=== PATIENT | female | born 1970 | race Caucasian/White ===

== ENCOUNTER → 2017-04-24 | Outpatient (CLI) | payer OTHER ==
[~2017-04-24] MED LIST: ALB6.7R INH; CETI-176 PO; CITA-155 PO; CITA-156 PO; CITA-157 PO; CYAN100088 PO; CYCL10TA29 PO; ESOM20CA31 PO; ESOM40CA42 PO; FERR324T13 PO; FLU45SYR25 IM ONLY; FLUT1DIS28 IH; FOLI-68 PO; HYDR-4309 PO; IBUP100T54 PO; IBUP200C71 PO; LACT1CAP6 PO; MELO-207 PO; MONT10TA PO; TRAM-420 PO; TRIA15OI20 TP
[2017-04-24 08:19] LABS: PLATELET COUNT, AUTOMATED 330 K/uL (150-450)
--- NOTE | 2017-04-24 10:24 | RADIOLOGY IMAGING REPORT ---
FACILITY: [facility] PATIENT NAME: Sarah Arroyo : 1970 MR: [id number] V: [id number] EXAM DATE: ORDERING PHYSICIAN: YOSELYN SCOTT TECHNOLOGIST: Location: [facility] - [place] Patient: Sarah Arroyo : 1970 Visit/Account:[id number] Date of Sevice: 04/24/2017 Exam type: CHEST PA AND LAT History: Cough Comparison: None. Findings: The lungs are free of acute effusions, infiltrates or edema. Cardiac silhouette is normal in size. The trachea is in midline. There are surgical clips the upper abdomen IMPRESSION: 1. No acute cardiopulmonary process is seen Report Dictated By: Kathy Brown MD at 04/24/2017 10:18 AM Report E-Signed By: Kathy Brown MD at 04/24/2017 10:19 AM WSN:[email or web address]
== END ==
LOC: LAB 08:07
PROVIDERS: ATTEND Nurse Practitioner Primary Care
DX: R05 Cough (principal)
CPT/HCPCS: 36415; 71046; 82040; 82247; 82310; 82374; 82435; 82565; 82947; 84075; 84132; 84155; 84295; 84450; 84460; 84520; 85025

== ENCOUNTER 2017-06-26 07:58 | Outpatient (RCR) | payer OTHER ==
[2017-05-09 08:07] VITALS: BP 138/92
[2017-05-09 08:28] LABS: PLATELET COUNT, AUTOMATED 333 K/uL (150-450)
[2017-05-25 12:33] VITALS: BP 133/90
--- NOTE | 2017-05-25 20:17 | ONCOLOGY FOLLOW UP NOTE ---
EVENT DATE: May 25, 2017 DIAGNOSES 1. Chronic, recurrent iron deficiency anemia without obvious cause. 2. History of asthma. 3. Gastroesophageal reflux disease on Nexium. 4. Anxiety on Celexa. CHIEF COMPLAINT The patient is here today for followup of her iron deficiency anemia. HEMATOLOGY HISTORY The patient is a 46-year-old female who moved from [place] to [place] and patient has a history of chronic iron deficiency anemia without any obvious blood loss source. As per patient, she did not have a GI workup in the past and she does not have heavy periods. She saw a payroll specialist in [place] between 2011 and 2013. She had blood work done February 2016 which showed hemoglobin of 8.4, hematocrit 29.8, serum iron 25 and ferritin 4 with iron saturation 6.3%. She was maintained in ferrous sulfate, but she was taking only one pill a day because she cannot tolerate the iron supplement orally. She is complaining of weakness and fatigue, daily headache. Repeat CBC on June 23, 2016 showed white count 10.1, hemoglobin 10.1, hematocrit 33.9%, platelets 429,000. Serum iron was 20. TIBC was 390. Iron saturation 5.1%. Ferritin was low normal at 6. Soluble transferrin receptor assay is high at 12.6. Red cell folate is 1342, which is normal. Serum folate was more than 22.3, which is normal. Vitamin B12 was 378. Methylmalonic acid is less than 0.10, which is normal. HISTORY OF PRESENT ILLNESS Patient is here today for followup of her recurrent iron deficiency anemia. She is complaining of a low grade fever lately, but she had a cold last week. Her cough is improved with Advair. 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 Other than that she is doing fine. PAST MEDICAL HISTORY 1. Chronic iron deficiency anemia. 2. Asthma. 3. GERD. 4. Anxiety. 5. Arthralgia with possible fibromyalgia. PAST SURGICAL HISTORY 1. Cholecystectomy in 2006. 2. section x2. 3. Left knee arthroscopic surgery. 4. Breast reduction surgery. SOCIAL HISTORY The patient is and has two children. She works in [employer]. Denies any abuse of tobacco, alcohol or drugs. FAMILY HISTORY Negative for cancer or blood diseases. CURRENT MEDICATIONS 1. Vitamin B12 at 1000 mcg orally daily. 2. Ferrous gluconate 324 mg once daily. 3. Celexa 40 mg once daily. 4. Nexium 40 mg once daily. 5. Singulair 10 mg once daily. 6. Zyrtec 10 mg once daily. 7. Ibuprofen 200 mg capsule, 2-4 capsules every eight hours p.r.n. and patient is using it on a daily basis. ALLERGIES PENICILLIN, WHICH CAUSED VOMITING A CHILD. REVIEW OF SYSTEMS CONSTITUTIONAL: No appetite or weight change. The patient has low grade fever for the last week after a cold. No chills or sweating. No recent infection. HEENT: Ears: No tinnitus or hearing problem. Nose: No nasal discharge or epistaxis. Throat: No sore throat or mouth ulcers. Eyes: No diplopia or visual changes. RESPIRATORY: She has cough, which improved with Advair inhaler.. MUSCULOSKELETAL: She has pain in the shoulders, both hips and hands. NEUROLOGICAL: She has tingling and numbness in the hands which is positional. She also has headache. HEMATOLOGICAL: She is weak, tired and fatigued. CARDIOVASCULAR: No chest pain, orthopnea, or paroxysmal nocturnal dyspnea (PND) . No edema. No palpitations. GASTROINTESTINAL: No nausea or vomiting. No diarrhea or constipation. No change in bowel movements. No heartburn or swallowing difficulties. No abdominal pain. No jaundice. No hematemesis, melena or rectal bleeding. GENITOURINARY: No hematuria or dysuria. SKIN: No skin rash or lump. PSYCHIATRIC: No anxiety or depression. PHYSICAL EXAMINATION GENERAL: Looks stable. Well-developed, well-nourished, and in no acute distress. VITAL SIGNS: Blood pressure 133/90, pulse 89 per minute, respirations 16 per minute, temperature 99, pulse ox 90% on room air. HEENT: Head: Atraumatic. No sinus tenderness to palpation. Eyes: No icterus or conjunctivitis. Mouth and throat: No oral thrush or mucositis. NECK: Supple. No cervical or supraclavicular lymphadenopathy. LUNGS: Clear to auscultation and percussion bilaterally. HEART: Regular rate and rhythm. No gallops, murmurs, clicks or rubs. ABDOMEN: Soft and lax. No tenderness. No hepatosplenomegaly. No masses. EXTREMITIES: No cyanosis, clubbing or edema. LYMPHATICS: No peripheral lymphadenopathy. NEUROLOGICAL: Conscious, alert and oriented times three. No focal motor or sensory deficits. PSYCHIATRIC: Mood and affect appear normal. SKIN: No skin rash, bruise or purpuric eruption. DIAGNOSTIC DATA CBC showed a white count of 11.1, hemoglobin 12.6, hematocrit 38.5, platelets 333,000. Chem panel normal. Creatinine 0.5. Serum ferritin is low at 8. ASSESSMENT 1. Chronic, recurrent iron deficiency anemia without obvious cause of her anemia. Patient has been maintained on ferrous sulfate 325 mg once daily, but patient could not tolerate the iron pill. She has been seen by Dr. Carr, and GI workup was done recently, I believe in January 2017, which did not show any bleeding source. She received Injectafer in the past with improvement of her ferritin, which dropped from 147 to 35 to 14 and currently 8. I am planning to treat her again with Injectafer 750 mg weekly for two doses. I will see her again in three months with CBC, iron studies with ferritin. 2. History of asthma. 3. Gastroesophageal reflux disease, on Nexium. 4. Anxiety, on Celexa. PLAN 1. Infectafer 750 mg IV infusion weekly for two weeks. 2. Patient to return in three months with CBC, iron studies with ferritin. 3. Patient is to contact us for any new concern or complaints. [facility]
[2017-06-19 08:06] VITALS: BP 144/83
[~2017-06-26 07:58] MED LIST changes: +DEXTROSE 5%(*) 100 ML BAG 100 ML IVPB PRN; +FERRIC CARBOXY 750 MG SDV 750 MG in NS(*) 0.9% 250 ML BAG 250 ML IVP ONE; +LIDOCAINE/SOD BICARB 8.4% SYR ID PRN; +NS(*) 0.9% 100 ML BAG 100 ML IVPB PRN
[2017-06-26] MEDS ORDERED: FERRIC CARBOXY 750 MG SDV 750 MG in NS(*) 0.9% 250 ML BAG 250 ML IVP ONE (08:45)
[2017-06-26 09:02] VITALS: BP 128/85
[2017-07-02] MEDS ORDERED: PRED20TA6 PO (21:23)
[2017-07-02] MEDS ORDERED: ALBU2.5V36 INH (21:23)
== END 2017-08-03 ==
LOC: SPU 07:58
PROVIDERS: ATTEND Internal Medicine Hematology
DX: D50.9 Iron deficiency anemia, unspecified (principal); J45.909 Unspecified asthma, uncomplicated; K21.9 Gastro-esophageal reflux disease without esophagitis; F41.9 Anxiety disorder, unspecified; R53.1 Weakness; R53.83 Other fatigue; R51 Headache; R20.0 Anesthesia of skin; M25.512 Pain in left shoulder; M25.511 Pain in right shoulder; M25.552 Pain in left hip; M25.551 Pain in right hip; M79.642 Pain in left hand; M79.641 Pain in right hand
CPT/HCPCS: 36415; 82728; 83550; 85025; 96365; 99212; J1439; J7050; 82040; 82247; 82310; 82374; 82435; 82565; 82947; 84075; 84132; 84155; 84295; 84450; 84460; 84520

== ENCOUNTER 2017-07-02 19:24 | Emergency (ER) | payer OTHER ==
[~2017-07-02 19:24] MED LIST changes: -DEXTROSE 5%(*) 100 ML BAG 100 ML IVPB PRN; -FERRIC CARBOXY 750 MG SDV 750 MG in NS(*) 0.9% 250 ML BAG 250 ML IVP ONE; -LIDOCAINE/SOD BICARB 8.4% SYR ID PRN; -NS(*) 0.9% 100 ML BAG 100 ML IVPB PRN
[2017-07-02] MEDS ORDERED: methylPREDNIS SUCC 125 MG/2ML IVP ONE (19:45)
[2017-07-02] MEDS ORDERED: ALBUTEROL/IPRATROPIUM 3 ML NEB NEB ONE (19:45)
--- NOTE | 2017-07-02 19:54 | ER Report ---
History and Physical Time Seen By MD: 19:33 Hx. of Stated Complaint: SOB. BODY ACHES, HEADACHE, FEVER, COUGH HPI/ROS CHIEF COMPLAINT: cough, short of breath HISTORY OF PRESENT ILLNESS: This is a 46 year old female. She has been sick for about 5 days now. She has cough and wheezing. She has asthma, normally well controlled. Muscle aches and headache. Fever. Tonight, was worried about the increasing shortness of breath. No nausea or vomiting at this time. Allergies: Coded Allergies: Penicillins (Verified Allergy, Mild, GI, 07/02/17) acetaminophen (Verified Adverse Reaction, Unknown, HALLUCINATIONS, 07/02/17) oxycodone (Verified Adverse Reaction, Unknown, HALLUCINATIONS, 07/02/17) Home Meds Active Scripts Albuterol Sulfate 0.083% (ALBUTEROL SULFATE 0.083%) 2.5 Mg/3 Ml Vial.neb, 2.5 MG INH Q4H Y for WHEEZING, #1 BOX 0 Refills Prov:AP CROW MD 07/02/17 Prednisone (PREDNISONE) 20 Mg Tablet, 40 MG PO QDAY for 4 Days, #8 TAB 0 Refills Prov:AP CROW MD 07/02/17 Fluticasone/Salmeterol (ADVAIR 250-50 DISKUS) 1 Each Disk.w.dev, 1 EACH IH BID, #4 DISK 0 Refills Prov:YOSELYN SCOTT DNP, [employer] REP-BC 05/11/17 Citalopram Hydrobromide (CELEXA) 40 Mg Tablet, 40 MG PO QDAY, #10 TAB Prov:CHYNA NGO MD 03/02/17 Montelukast Sodium (SINGULAIR) 10 Mg Tablet, 1 TAB PO QDAY, #90 TAB 4 Refills Prov:CHYNA NGO MD 06/28/16 Cetirizine Hcl (ZYRTEC) 10 Mg Tablet, 10 MG PO QDAY, #90 TAB 4 Refills Prov:CHYNA NGO MD 06/28/16 Esomeprazole Magnesium (NEXIUM) 40 Mg Capsule.dr, 1 CAP PO QDAY, #90 CAP 1 Refill Prov:CHYNA NGO MD 03/24/16 Reported Medications Lactobacillus Combination No.4 (PROBIOTIC) 1 Each Capsule, 1 EACH PO, CAPSULE 04/21/17 Albuterol Sulfate (PROVENTIL HFA) 6.7 Gm Inh, 2 PUFF INH Q4-6H Y for ALLERGY SYMPTOMS, INH 01/24/17 Reviewed Nurses Notes: Yes Smoking Status: Former Smoker Hx Substance Use Disorder: No Hx Alcohol Use: Yes Constitutional Vital Sign - Last 24 Hours 07/02/17 07/02/17 07/02/17 07/02/17 19:29 19:40 19:50 19:52 Temp 98.1 Pulse 95 90 88 Resp 22 B/P (MAP) 129/78 Pulse Ox 94 94 100 94 O2 Delivery Room Air Room Air 07/02/17 07/02/17 07/02/17 07/02/17 19:53 19:54 20:00 20:10 Pulse 92 97 94 91 Resp 16 16 B/P (MAP) 118/74 (89) Pulse Ox 95 86 07/02/17 07/02/17 07/02/17 07/02/17 20:20 20:30 20:40 21:21 Pulse 88 85 ??? 88 Resp 16 B/P (MAP) 120/80 (93) 116/69 (85) Pulse Ox 93 94 91 92 O2 Delivery Room Air Physical Exam General Appearance: The patient is alert. No acute distress. Eyes: Pupils are equal, round. No pallor, injection or icterus. ENT: Mucous membranes are moist. Normal oral mucosa. Posterior oropharynx has some erythema. Normal nasal mucosa. Normal tympanic membranes and canals. Neck: Supple and non tender. Respiratory: Lungs with some expiratory wheezing, but no rales or rhonchi. There are no retractions or accessory muscle use. Cardiovascular: Regular rate and rhythm. No murmurs, gallops or rubs. Normal capillary refill. Gastrointestinal: Abdomen is soft and non tender. Nondistended. Normal active bowel sounds. Neurological: Alert and oriented x3. No focal neurologic deficits Skin: Warm and dry. DIFFERENTIAL DIAGNOSIS: After history and physical exam, differential diagnosis was considered for shortness of breath including but not limited to pulmonary infectious process, asthma exacerbation, influenza. Medical Decision Making Data Points Result Diagram: 07/02/17194607/02/171946 Laboratory Hematology Test 07/02/17 19:47 Red Blood Count 5.16 M/uL (4.17-5.56) Mean Corpuscular Volume 82.9 fL (80.0-96.0) Mean Corpuscular Hemoglobin 27.7 pg (26.0-33.0) Mean Corpuscular Hemoglobin Concent 33.4 g/dL (32.0-36.0) Red Cell Distribution Width 19.3 % (11.5-14.5) Mean Platelet Volume 7.7 fL (7.2-11.1) Neutrophils (%) (Auto) 67.2 % (39.4-72.5) Lymphocytes (%) (Auto) 16.8 % (17.6-49.6) Monocytes (%) (Auto) 9.7 % (4.1-12.4) Eosinophils (%) (Auto) 5.7 % (0.4-6.7) Basophils (%) (Auto) 0.6 % (0.3-1.4) Nucleated RBC Relative Count (auto) 0.1 /100WBC Neutrophils # (Auto) 5.2 K/uL (2.0-7.4) Lymphocytes # (Auto) 1.3 K/uL (1.3-3.6) Monocytes # (Auto) 0.8 K/uL (0.3-1.0) Eosinophils # (Auto) 0.4 K/uL (0.0-0.5) Basophils # (Auto) 0.0 K/uL (0.0-0.1) Nucleated RBC Absolute Count (auto) 0.00 K/uL Sodium Level 139 mmol/L (137-145) Potassium Level 3.2 mmol/L (3.5-5.0) Chloride Level 100 mmol/L (98-107) Carbon Dioxide Level 25 mmol/L (22-31) Blood Urea Nitrogen 12 mg/dl (7-18) Creatinine 0.60 mg/dl (0.52-1.04) Glomerular Filtration Rate Calc > 60.0 Random Glucose 123 mg/dl (75-110) Calcium Level 8.6 mg/dl (8.4-10.2) Total Bilirubin 0.2 mg/dl (0.2-1.3) Aspartate Amino Transf (AST/SGOT) 19 U/L (0-35) Alanine Aminotransferase (ALT/SGPT) 21 U/L (0-56) Alkaline Phosphatase 76 U/L (0-126) Total Protein 7.2 gm/dl (6.3-8.2) Albumin 3.9 g/dl (3.5-5.0) Influenza Virus Type A (PCR) Negative (NEGATIVE) Influenza Virus Type B (PCR) Negative (NEGATIVE) Chemistry Test 07/02/17 19:47 White Blood Count 7.8 k/uL (4.5-11.0) Red Blood Count 5.16 M/uL (4.17-5.56) Hemoglobin 14.3 g/dL (12.0-16.0) Hematocrit 42.8 % (34.0-47.0) Mean Corpuscular Volume 82.9 fL (80.0-96.0) Mean Corpuscular Hemoglobin 27.7 pg (26.0-33.0) Mean Corpuscular Hemoglobin Concent 33.4 g/dL (32.0-36.0) Red Cell Distribution Width 19.3 % (11.5-14.5) Platelet Count 221 K/uL (150-450) Mean Platelet Volume 7.7 fL (7.2-11.1) Neutrophils (%) (Auto) 67.2 % (39.4-72.5) Lymphocytes (%) (Auto) 16.8 % (17.6-49.6) Monocytes (%) (Auto) 9.7 % (4.1-12.4) Eosinophils (%) (Auto) 5.7 % (0.4-6.7) Basophils (%) (Auto) 0.6 % (0.3-1.4) Nucleated RBC Relative Count (auto) 0.1 /100WBC Neutrophils # (Auto) 5.2 K/uL (2.0-7.4) Lymphocytes # (Auto) 1.3 K/uL (1.3-3.6) Monocytes # (Auto) 0.8 K/uL (0.3-1.0) Eosinophils # (Auto) 0.4 K/uL (0.0-0.5) Basophils # (Auto) 0.0 K/uL (0.0-0.1) Nucleated RBC Absolute Count (auto) 0.00 K/uL Glomerular Filtration Rate Calc > 60.0 Calcium Level 8.6 mg/dl (8.4-10.2) Total Bilirubin 0.2 mg/dl (0.2-1.3) Aspartate Amino Transf (AST/SGOT) 19 U/L (0-35) Alanine Aminotransferase (ALT/SGPT) 21 U/L (0-56) Alkaline Phosphatase 76 U/L (0-126) Total Protein 7.2 gm/dl (6.3-8.2) Albumin 3.9 g/dl (3.5-5.0) Influenza Virus Type A (PCR) Negative (NEGATIVE) Influenza Virus Type B (PCR) Negative (NEGATIVE) EKG/Imaging Imaging CHEST PA AND LAT HISTORY: Cough. Shortness of breath. Asthma. COMPARISON: 04/24/2017. TECHNIQUE: PA and lateral views of the chest. FINDINGS: Pulmonary: Lungs are clear. There is no pneumothorax or pleural effusion. Cardiomediastinal: Cardiac and mediastinal silhouettes are within normal limits. Bones/soft tissues: No acute osseous abnormality. The visible abdomen is normal. IMPRESSION: 1. No acute cardiopulmonary process. Report Dictated By: Meche Frey at 07/02/2017 9:07 PM ED Course/Re-evaluation Clinical Indication for ER IV: IV Access ED Course The patient received a dose of Solu-Medrol 125mg IV and a DuoNeb breathing treatment. Her wheezing has increased after the treatment. Still no rales. She feels better. Reviewed imaging and labs a little later, which are unremarkable. She will return home with viral upper respiratory infection and asthma exacerbation. She will use inhalers tonight. Started on Prednisone. Offered to get her nebulizer tonight, but she will work on this tomorrow morning. Decision to Disposition Date: Jul 02, 2017 Decision to Disposition Time: 21:19 Depart Departure Latest Vital Signs Vital Signs Date Time Temp Pulse Resp B/P (MAP) Pulse Ox O2 Delivery O2 Flow Rate FiO2 07/02/17 21:21 88 16 116/69 (85) 92 Room Air 07/02/17 19:29 98.1 Impression: Primary Impression: Upper respiratory infection Additional Impression: Asthma with exacerbation Condition: Improved Disposition: HOME OR SELF-CARE Referrals: CHYNA NGO MD (PCP) New Scripts Albuterol Sulfate 0.083% (ALBUTEROL SULFATE 0.083%) 2.5 Mg/3 Ml Vial.neb 2.5 MG INH Q4H Y for WHEEZING, #1 BOX 0 Refills Prov: AP CROW MD 07/02/17 Prednisone (PREDNISONE) 20 Mg Tablet 40 MG PO QDAY for 4 Days, #8 TAB 0 Refills Prov: AP CROW MD 07/02/17 Patient Instructions: Asthma (ED), Upper Respiratory Infection (ED) Additional Instructions: Take Prednisone 20mg tablets, take 2 tablets once a day in the morning for 4 more days. Albuterol by nebulizer or by inhaler every 4 hours as needed. Rest and increase fluids. Would recommend off work for 1-2 more days; possibly return to work on Monday. Ibuprofen as needed for pain or for fever. Problem Qualifiers Primary Impression: Upper respiratory infection URI type: unspecified URI Qualified Codes: J06.9 - Acute upper respiratory infection, unspecified Additional Impression: Asthma with exacerbation Asthma severity: moderate Asthma persistence: persistent Qualified Codes: J45.41 - Moderate persistent asthma with (acute) exacerbation AP CROW MD Jul 02, 2017 19:54
[2017-07-02 20:03] LABS: PLATELET COUNT, AUTOMATED 221 K/uL (150-450)
--- NOTE | 2017-07-02 21:12 | RADIOLOGY IMAGING REPORT ---
FACILITY: [facility] - [place] PATIENT NAME: Sarah Arroyo : 1970 MR: [id number] V: [id number] EXAM DATE: ORDERING PHYSICIAN: AP CROW TECHNOLOGIST: [place] [facility] [place] Sarah Arroyo : 1970 Visit/Account:[id number] Date of Sevice: 07/02/2017 CHEST PA AND LAT HISTORY: Cough. Shortness of breath. Asthma. COMPARISON: 04/24/2017. TECHNIQUE: PA and lateral views of the chest. FINDINGS: Pulmonary: Lungs are clear. There is no pneumothorax or pleural effusion. Cardiomediastinal: Cardiac and mediastinal silhouettes are within normal limits. Bones/soft tissues: No acute osseous abnormality. The visible abdomen is normal. IMPRESSION: 1. No acute cardiopulmonary process. Report Dictated By: Meche Frey at 07/02/2017 9:07 PM Report E-Signed By: Meche Frey at 07/02/2017 9:08 PM WSN:[id number]
[2017-07-02] MEDS ORDERED: predniSONE 20 MG TAB PO ONE (21:20)
[2017-07-02 21:21] VITALS: BP 116/69
[2017-07-02] MEDS ORDERED: PRED20TA6 PO (21:23)
[2017-07-02] MEDS ORDERED: ALBU2.5V36 INH (21:23)
== END 2017-07-02 21:39 | disposition home or self-care (01) ==
LOC: ER 19:37
DX: J06.9 Acute upper respiratory infection, unspecified (principal); J45.41 Moderate persistent asthma with (acute) exacerbation
CPT/HCPCS: 71046; 85025; 87502; 94640; 96374; 99283; J2930; J7512; J7620; 82040; 82247; 82310; 82374; 82435; 82565; 82947; 84075; 84132; 84155; 84295; 84450; 84460; 84520

== ENCOUNTER 2017-09-01 12:24 | Outpatient (RCR) | payer OTHER ==
[2017-08-30 08:17] LABS: PLATELET COUNT, AUTOMATED 317 K/uL (150-450)
[~2017-09-01 12:24] MED LIST changes: +ALBU2.5V36 INH; +PRED20TA6 PO
[2017-09-01 12:36] VITALS: BP 123/83
--- NOTE | 2017-09-01 16:50 | ONCOLOGY FOLLOW UP NOTE ---
EVENT DATE: September 01, 2017 DIAGNOSES 1. Chronic, recurrent iron deficiency anemia without obvious cause. 2. History of asthma. 3. Gastroesophageal reflux disease on Nexium. 4. Anxiety on Celexa. CHIEF COMPLAINT The patient is here today for followup of her iron deficiency anemia. HEMATOLOGY HISTORY The patient is a 47-year-old female who moved from [place] to [place] and patient has a history of chronic iron deficiency anemia without any obvious blood loss source. As per patient, she did not have a GI workup in the past and she does not have heavy periods. She saw a aerographer in [place] between 2011 and 2013. She had blood work done February 2016 which showed hemoglobin of 8.4, hematocrit 29.8, serum iron 25 and ferritin 4 with iron saturation 6.3%. She was maintained in ferrous sulfate, but she was taking only one pill a day because she cannot tolerate the iron supplement orally. She is complaining of weakness and fatigue, daily headache. Repeat CBC on June 23, 2016 showed white count 10.1, hemoglobin 10.1, hematocrit 33.9%, platelets 429,000. Serum iron was 20. TIBC was 390. Iron saturation 5.1%. Ferritin was low normal at 6. Soluble transferrin receptor assay is high at 12.6. Red cell folate is 1342, which is normal. Serum folate was more than 22.3, which is normal. Vitamin B12 was 378. Methylmalonic acid is less than 0.10, which is normal. HISTORY OF PRESENT ILLNESS Patient is here today for followup of her recurrent iron deficiency anemia after having Injectafer infusions with her last visit. She is complaining of residual cough from her upper respiratory tract infection. She has arthritis mainly involving the hands, arms and shoulders. She is weak, tired and fatigued , which is chronic. PAST MEDICAL HISTORY 1. Chronic iron deficiency anemia. 2. Asthma. 3. GERD. 4. Anxiety. 5. Arthralgia with possible fibromyalgia. PAST SURGICAL HISTORY 1. Cholecystectomy in 2006. 2. section x2. 3. Left knee arthroscopic surgery. 4. Breast reduction surgery. SOCIAL HISTORY The patient is and has two children. She works in [employer]. Denies any abuse of tobacco, alcohol or drugs. FAMILY HISTORY Negative for cancer or blood diseases. CURRENT MEDICATIONS 1. Vitamin B12 at 1000 mcg orally daily. 2. Ferrous gluconate 324 mg once daily. 3. Celexa 40 mg once daily. 4. Nexium 40 mg once daily. 5. Singulair 10 mg once daily. 6. Zyrtec 10 mg once daily. 7. Ibuprofen 200 mg capsule, 2-4 capsules every eight hours p.r.n. and patient is using it on a daily basis. ALLERGIES PENICILLIN, which caused vomiting as a child. REVIEW OF SYSTEMS CONSTITUTIONAL: No appetite or weight change. The patient has low grade fever for the last week after a cold. No chills or sweating. No recent infection. HEENT: Ears: No tinnitus or hearing problem. Nose: No nasal discharge or epistaxis. Throat: No sore throat or mouth ulcers. Eyes: No diplopia or visual changes. RESPIRATORY: Patient has residual cough from upper respiratory tract infection. MUSCULOSKELETAL: She has pain in the hands, arms and shoulders. NEUROLOGICAL: She has tingling and numbness in the hands which is positional. She also has headache. HEMATOLOGICAL: She is weak, tired and fatigued. CARDIOVASCULAR: No chest pain, orthopnea, or paroxysmal nocturnal dyspnea (PND) . No edema. No palpitations. GASTROINTESTINAL: No nausea or vomiting. No diarrhea or constipation. No change in bowel movements. No heartburn or swallowing difficulties. No abdominal pain. No jaundice. No hematemesis, melena or rectal bleeding. GENITOURINARY: No hematuria or dysuria. SKIN: No skin rash or lump. PSYCHIATRIC: No anxiety or depression. PHYSICAL EXAMINATION GENERAL: Looks stable. Well-developed, well-nourished, and in no acute distress. VITAL SIGNS: Blood pressure 123/83, pulse 80 per minute, respirations 16 per minute, temperature 98.6, pulse ox 90% on room air. HEENT: Head: Atraumatic. No sinus tenderness to palpation. Eyes: No icterus or conjunctivitis. Mouth and throat: No oral thrush or mucositis. NECK: Supple. No cervical or supraclavicular lymphadenopathy. LUNGS: Clear to auscultation and percussion bilaterally. HEART: Regular rate and rhythm. No gallops, murmurs, clicks or rubs. ABDOMEN: Soft and lax. No tenderness. No hepatosplenomegaly. No masses. EXTREMITIES: No cyanosis, clubbing or edema. LYMPHATICS: No peripheral lymphadenopathy. NEUROLOGICAL: Conscious, alert and oriented times three. No focal motor or sensory deficits. PSYCHIATRIC: Mood and affect appear normal. SKIN: No skin rash, bruise or purpuric eruption. DIAGNOSTIC DATA CBC showed a white count of 11.4, hemoglobin 15.3, hematocrit 45.2, platelets 317,000. Serum iron 85, TIBC 269, iron saturation 31.6% and serum ferritin 265. ASSESSMENT 1. Chronic, recurrent iron deficiency anemia, without obvious cause of her anemia. Patient has been maintained on ferrous sulfate 325 mg once daily, but patient could not tolerate the iron pills. Patient has been seen by Dr. Carr , and GI workup done recently, January 2017, which was negative for bleeding source. She received Injectafer in the past with improvement of her ferritin, which dropped from 147 to 35 to 14 to 8. She received Injectafer with her last visit in May 2017, and her current ferritin is 265, up from 8. Her hemoglobin is 15.3, up from 12.6 with her last visit. I am planning to continue followup. I will see her again in six months with CBC, iron studies with ferritin. 2. History of asthma. 3. Gastroesophageal reflux disease, on Nexium. 4. Anxiety, on Celexa. PLAN 1. Continue followup. 2. Patient to return in six months with CBC, iron studies with ferritin. 3. Patient is to contact us for any new concern or complaints. MARIE
== END 2017-09-05 10:16 | disposition home or self-care (01) ==
LOC: ONC 12:24
PROVIDERS: ATTEND Internal Medicine Hematology
DX: D64.9 Anemia, unspecified (principal); D50.9 Iron deficiency anemia, unspecified; K21.9 Gastro-esophageal reflux disease without esophagitis; F41.9 Anxiety disorder, unspecified
CPT/HCPCS: 36415; 82728; 83540; 83550; 85025; 99212

== ENCOUNTER → 2017-09-14 | Outpatient (CLI) | payer OTHER ==
[~2017-09-14] MED LIST changes: +OMEP-137 PO
[2017-09-14 08:28] LABS: PLATELET COUNT, AUTOMATED 296 K/uL (150-450)
[2017-09-14 08:43] LABS: LDL CHOLESTEROL 153 mg/dl
--- NOTE | 2017-09-14 09:14 | RADIOLOGY IMAGING REPORT ---
[place] [facility] [place] Sarah Arroyo : 1970 MR: [id number] V: [id number] EXAM DATE: ORDERING PHYSICIAN: CHYNA NGO TECHNOLOGIST: Location: [facility] [place] Patient: Sarah Arroyo : 1970 Visit/Account:[id number] Date of Sevice: 09/14/2017 Exam type: HAND COMPLETE LEFT History: Left hand pain, arthritis Comparison: None. Findings: There is severe joint space narrowing with marginal osteophytes involving the DIP and PIP joints of t he left fifth finger. There is moderate narrowing of the DIP joints of the second third and fourth f ingers. There is severe degenerative changes involving the first carpometacarpal articulation. Bony fragment projects just lateral to the trapezium bone. The margins appear relatively smooth suggesti ng this is a chronic finding although correlation with symptoms needed IMPRESSION: 1. 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
== END ==
LOC: RAD 08:03
PROVIDERS: ATTEND Internal Medicine
DX: K21.9 Gastro-esophageal reflux disease without esophagitis (principal); E78.5 Hyperlipidemia, unspecified; D50.9 Iron deficiency anemia, unspecified; M19.042 Primary osteoarthritis, left hand
CPT/HCPCS: 82040; 82247; 82310; 82374; 82435; 82465; 82565; 82947; 83718; 84075; 84132; 84155; 84295; 84443; 84450; 84460; 84478; 84520; 84550; 85025; 85651; 86038; 86140; 86200; 86430

== ENCOUNTER → 2017-10-11 | Outpatient (CLI) | payer OTHER ==
[~2017-10-11] MED LIST changes: +CLIN300C99 PO; +ESCI20TA38 PO; +IBUP-136 PO; -IBUP200C71 PO
--- NOTE | 2017-10-11 17:11 | RADIOLOGY IMAGING REPORT ---
FACILITY: [facility] - [place] PATIENT NAME: Sarah Arroyo : 1970 MR: [id number] V: [id number] EXAM DATE: ORDERING PHYSICIAN: CHYNA NGO TECHNOLOGIST: Location: [facility] [place] Patient: Sarah Arroyo : 1970 Visit/Account:[id number] Date of Sevice: 10/11/2017 SOFT TISSUE HEAD NECK HISTORY: LUMP LEFT SIDE OF THE NECK ULTRASOUND EXAMINATION OF THE NECK. FINDINGS: There are no distinct mass lesions are any evidence of an abscess within the neck. There are numerou s lymph nodes seen throughout the neck more numerous in the left neck particularly within stones thre e and five. Most lymph nodes are subcentimeter in size. The largest is in the superior aspect of zo ne five measuring 1.1 x 1.2 cm in size. There also appeared to be a lymph node not measured by the t echnologist in zone five on the left that measured 1.7 x 0.8 cm. Also not described by the technologist but is seen on the images obtained is what appears to be a 1 c m left hypoattenuated roundish mass. Within the right neck and zone two there are two lymph nodes largest measuring 1.3 x 0.9 x 1.4 cm in size. IMPRESSION: 1. There appears be a 1 cm parotid hypoattenuated mass not described by the technologist but visuali zed on images obtained. In the clinical context of pain in the left aspect of the face, a parotid ab scess with reactive lymphadenopathy is suggested. Recommend clinical correlation and appropriate fol low-up. Report Dictated By: Inder Marlow MD at 10/11/2017 4:24 PM Report E-Signed By: Inder Marlow MD at 10/11/2017 5:07 PM WSN:[id number]
== END ==
LOC: US 14:53
PROVIDERS: ATTEND Internal Medicine
DX: R22.1 Localized swelling, mass and lump, neck (principal)
CPT/HCPCS: 76536

== ENCOUNTER 2018-02-23 13:05 | Outpatient (RCR) | payer OTHER ==
[~2018-02-23 13:05] MED LIST changes: +ATOR20TA65 PO; -HYDR-4309 PO; +HYDR-653 PO
[2018-02-26 09:00] VITALS: BP 130/72
== END 2018-02-26 16:50 | disposition home or self-care (01) ==
LOC: ONC 13:05
PROVIDERS: ATTEND Internal Medicine Hematology
DX: D64.9 Anemia, unspecified (principal); D50.9 Iron deficiency anemia, unspecified; K21.9 Gastro-esophageal reflux disease without esophagitis; F41.9 Anxiety disorder, unspecified

== ENCOUNTER 2018-05-09 08:00 | Outpatient (RCR) | payer OTHER ==
[2018-04-23 08:21] VITALS: BP 147/101
[2018-04-23 08:34] LABS: PLATELET COUNT, AUTOMATED 341 K/uL (150-450)
[2018-04-26 08:10] VITALS: BP 125/79
--- NOTE | 2018-04-26 09:46 | EL-TARABILY ONCOLOGY NOTE ---
EVENT DATE: April 26, 2018 DIAGNOSES 1. Chronic, recurrent iron deficiency anemia without obvious cause. 2. History of asthma. 3. Gastroesophageal reflux disease on Nexium. 4. Anxiety on Celexa. CHIEF COMPLAINT The patient is here today for her iron deficiency anemia. ONCOLOGY HISTORY The patient is a 47-year-old female who moved from [place] to [place] and patient has a history of chronic iron deficiency anemia without any obvious blood loss source. As per patient, she did not have a GI workup in the past and she does not have heavy periods. She saw a detective captain in [place] between 2011 and 2013. She had blood work done February 2016 which showed hemoglobin of 8.4, hematocrit 29.8, serum iron 25 and ferritin 4 with iron saturation 6.3%. She was maintained in ferrous sulfate, but she was taking only one pill a day because she cannot tolerate the iron supplement orally. She is complaining of weakness and fatigue, daily headache. Repeat CBC on June 23, 2016 showed white count 10.1, hemoglobin 10.1, hematocrit 33.9%, platelets 429,000. Serum iron was 20. TIBC was 390. Iron saturation 5.1%. Ferritin was low normal at 6. Soluble transferrin receptor assay is high at 12.6. Red cell folate is 1342, which is normal. Serum folate was more than 22.3, which is normal. Vitamin B12 was 378. Methylmalonic acid is less than 0.10, which is normal. HISTORY OF PRESENT ILLNESS Patient is here today for followup of her iron deficiency anemia. She is doing fine currently except for some dry cough. She has generalized joint pain all over. She has also some neuropathy with numbness in her upper thighs and in her hands, more in the right hand than the left hand. She is also weak, tired and fatigued lately. PAST MEDICAL HISTORY 1. Chronic iron deficiency anemia. 2. Asthma. 3. GERD. 4. Anxiety. 5. Arthralgia with possible fibromyalgia. PAST SURGICAL HISTORY 1. Cholecystectomy in 2006. 2. section x2. 3. Left knee arthroscopic surgery. 4. Breast reduction surgery. SOCIAL HISTORY The patient is and has two children. She works in [employer]. Denies any abuse of tobacco, alcohol or drugs. FAMILY HISTORY Negative for cancer or blood diseases. CURRENT MEDICATIONS 1. Vitamin B12 at 1000 mcg orally daily. 2. Ferrous gluconate 324 mg once daily. 3. Celexa 40 mg once daily. 4. Nexium 40 mg once daily. 5. Singulair 10 mg once daily. 6. Zyrtec 10 mg once daily. 7. Ibuprofen 200 mg capsule, 2-4 capsules every eight hours p.r.n. and patient is using it on a daily basis. ALLERGIES PENICILLIN, which caused vomiting as a child. REVIEW OF SYSTEMS CONSTITUTIONAL: No appetite or weight change. The patient has low grade fever for the last week after a cold. No chills or sweating. No recent infection. HEENT: Ears: No tinnitus or hearing problem. Nose: No nasal discharge or epistaxis. Throat: No sore throat or mouth ulcers. Eyes: No diplopia or visual changes. RESPIRATORY: Patient has dry cough. MUSCULOSKELETAL: She has generalized joint pains. NEUROLOGICAL: She has numbness in her upper thighs and in her hands, more in the right hand than the left hand. HEMATOLOGICAL: She is weak, tired and fatigued. CARDIOVASCULAR: No chest pain, orthopnea, or paroxysmal nocturnal dyspnea (PND). No edema. No palpitations. GASTROINTESTINAL: No nausea or vomiting. No diarrhea or constipation. No change in bowel movements. No heartburn or swallowing difficulties. No abdominal pain. No jaundice. No hematemesis, melena or rectal bleeding. GENITOURINARY: No hematuria or dysuria. SKIN: No skin rash or lump. PSYCHIATRIC: No anxiety or depression. PHYSICAL EXAMINATION GENERAL: Looks stable. Well-developed, well-nourished, and in no acute distress. VITAL SIGNS: Blood pressure 125/79, pulse 79 per minute, respirations 16 per minute, temperature 98.8, pulse ox 90% on room air. HEENT: Head: Atraumatic. No sinus tenderness to palpation. Eyes: No icterus or conjunctivitis. Mouth and throat: No oral thrush or mucositis. NECK: Supple. No cervical or supraclavicular lymphadenopathy. LUNGS: Clear to auscultation and percussion bilaterally. HEART: Regular rate and rhythm. No gallops, murmurs, clicks or rubs. ABDOMEN: Soft and lax. No tenderness. No hepatosplenomegaly. No masses. EXTREMITIES: No cyanosis, clubbing or edema. LYMPHATICS: No peripheral lymphadenopathy. NEUROLOGICAL: Conscious, alert and oriented times three. No focal motor or sensory deficits. PSYCHIATRIC: Mood and affect appear normal. SKIN: No skin rash, bruise or purpuric eruption. DIAGNOSTIC DATA CBC showed a white count of 10.7, hemoglobin 14.6, hematocrit 44.1, platelets 341,000. Serum iron 65, TIBC 342, iron saturation 19% and ferritin 12, which is down from 265 six months ago. ASSESSMENT 1. Chronic, recurrent iron deficiency anemia without obvious cause of her anemia. Patient has been maintained on ferrous sulfate 325 mg daily but patient could not tolerate iron pills. She has been seen by Dr. Carr and GI workup done January 2017 was negative for a bleeding source. She received Injectafer in the past with improvement of her ferritin. Her last ferritin was 265 six months ago and currently is only 12. I am planning to proceed with Injectafer infusion 750 mg weekly for two weeks and I am planning to see her again in four months from now with CBC and iron studies with ferritin. Patient could have arteriovenous malformation responsible for her drop of ferritin every six to eight months now. 2. History of asthma. 3. Gastroesophageal reflux disease, on Nexium. 4. Anxiety, on Celexa. PLAN 1. Injectafer 750 mg intravenous infusion weekly for two weeks. 2. Patient to return in four months with CBC, iron studies with ferritin. 3. Patient is to contact us for any new concern or complaints. [facility]
[2018-05-02 08:28] VITALS: BP 126/82
[2018-05-02] MEDS: NS(*) 0.9% 100 ML BAG 100 ML IVPB PRN (08:48)
[2018-05-02 09:09] VITALS: BP 116/74
[~2018-05-09 08:00] MED LIST changes: +DEXTROSE 5%(*) 100 ML BAG 100 ML IVPB PRN; +FERRIC CARBOXY 750 MG SDV 750 MG in NS(*) 0.9% 250 ML BAG 250 ML IVP ONE; +LIDOCAINE/SOD BICARB 8.4% SYR ID PRN
[2018-05-09 08:22] VITALS: BP 109/74
[2018-05-09] MEDS: NS(*) 0.9% 100 ML BAG 100 ML IVPB PRN (08:37)
[2018-05-09] MEDS ORDERED: FERRIC CARBOXY 750 MG SDV 750 MG in NS(*) 0.9% 250 ML BAG 250 ML IVP ONE (09:00)
[2018-05-09 09:02] VITALS: BP 116/84
== END 2018-05-14 14:14 | disposition home or self-care (01) ==
LOC: SPU 08:00
PROVIDERS: ATTEND Internal Medicine Hematology
DX: D50.9 Iron deficiency anemia, unspecified (principal); K21.9 Gastro-esophageal reflux disease without esophagitis; F41.9 Anxiety disorder, unspecified; R53.1 Weakness; R53.83 Other fatigue; R51 Headache; R05 Cough; M25.50 Pain in unspecified joint; G62.9 Polyneuropathy, unspecified
CPT/HCPCS: 36415; 82728; 83540; 83550; 85025; 96365; 99212; J1439; J7050

== ENCOUNTER 2018-08-23 11:57 | Outpatient (RCR) | payer OTHER ==
[2018-08-17 08:30] VITALS: BP 122/82
[2018-08-17 08:53] LABS: PLATELET COUNT, AUTOMATED 252 K/uL (150-450)
[~2018-08-23 11:57] MED LIST changes: -DEXTROSE 5%(*) 100 ML BAG 100 ML IVPB PRN; -FERRIC CARBOXY 750 MG SDV 750 MG in NS(*) 0.9% 250 ML BAG 250 ML IVP ONE; -LIDOCAINE/SOD BICARB 8.4% SYR ID PRN
[2018-08-23 12:01] VITALS: BP 124/88
--- NOTE | 2018-08-23 14:44 | ONCOLOGY FOLLOW UP NOTE ---
EVENT DATE: August 23, 2018 DIAGNOSES 1. Chronic, recurrent iron deficiency anemia, without obvious cause. 2. History of asthma. 3. Gastroesophageal reflux disease, on Nexium. 4. Anxiety, on Celexa. CHIEF COMPLAINT Patient is here today for followup of her iron deficiency anemia. ONCOLOGY HISTORY Patient is a 48-year-old female who moved from [place] to [place]. Patient has a history of chronic iron deficiency anemia without any obvious blood loss source. As per patient, she did not have a GI workup in the past, and she does not have heavy periods. She saw a nurse practitioner physicians assistant in [place] between 2011 and 2013. She had blood work done February 2016, which showed hemoglobin of 8.4, hematocrit 29.8, serum iron 25, and ferritin 4, with iron saturation 6.3%. She was maintained on ferrous sulfate, but she was taking only one pill a day because she cannot tolerate the iron supplement orally. She is complaining of weakness and fatigue, daily headache. Repeat CBC on June 23, 2016, showed white count 10.1, hemoglobin 10.1, hematocrit 33.9%, platelets 429,000. Serum iron was 20. TIBC was 390. Iron saturation 5.1. Ferritin was low normal at 6. Soluble transferrin receptor assay was high at 12.6. Red cell folate was 1342, which is normal. Serum folate was more than 22.3, which is normal. Vitamin B12 was 378. Methylmalonic acid was less than 0.10, which is normal. HISTORY OF PRESENT ILLNESS Patient is here today for followup of her iron deficiency anemia. She is doing fine currently except having generalized joint pains all over. She has also some neuropathy in the hands and upper arms. She bruises easily, but other than that, she is doing fine. Her fatigue got better after her last Injectafer infusions four months ago. PAST MEDICAL HISTORY 1. Chronic iron deficiency anemia. 2. Asthma. 3. GERD. 4. Anxiety. 5. Arthralgia with possible fibromyalgia. PAST SURGICAL HISTORY 1. Cholecystectomy in 2005. 2. section x2. 3. Left knee arthroscopic surgery. 4. Breast reduction surgery. SOCIAL HISTORY The patient is and has two children. She works in [employer]. Denies any abuse of tobacco, alcohol, or drugs. FAMILY HISTORY Negative for cancer or blood diseases. CURRENT MEDICATIONS 1. Vitamin B12 at 1000 mcg orally daily. 2. Ferrous gluconate 324 mg once daily. 3. Celexa 40 mg once daily. 4. Nexium 40 mg once daily. 5. Singulair 10 mg once daily. 6. Zyrtec 10 mg once daily. 7. Ibuprofen 200 mg capsule, two to four capsules every eight hours p.r.n., and patient is using it on a daily basis. ALLERGIES PENICILLIN, which caused vomiting as a child. REVIEW OF SYSTEMS CONSTITUTIONAL: No appetite or weight change. No fever, chills, or sweating. No recent infection. HEENT: Ears: No tinnitus or hearing problem. Nose: No nasal discharge or epistaxis. Throat: No sore throat or mouth ulcers. Eyes: No diplopia or visual changes. RESPIRATORY: No shortness of breath. No cough, expectoration, or hemoptysis. CARDIOVASCULAR: No chest pain, orthopnea, or paroxysmal nocturnal dyspnea (PND). No edema. No palpitations. GASTROINTESTINAL: No nausea or vomiting. No diarrhea or constipation. No change in bowel movements. No heartburn or swallowing difficulties. No abdominal pain. No jaundice. No hematemesis, melena, or rectal bleeding. GENITOURINARY: No hematuria or dysuria. MUSCULOSKELETAL: She has generalized musculoskeletal pain. NEUROLOGIC: She has neuropathy in the hands and upper arms. No headaches or convulsions. HEMATOLOGIC/LYMPHATIC: She bruises easily. Her fatigue got better after Injectafer infusions. No enlarged lymph nodes. SKIN: No skin rash or lumps. PSYCHIATRIC: No anxiety or depression. PHYSICAL EXAMINATION GENERAL: Looks stable. Well developed, well nourished, and in no acute distress. VITAL SIGNS: Blood pressure 124/88, pulse 78 per minute, respirations 16 per minute, temperature 97, pulse ox 93% on room air. HEENT: Head: Atraumatic. No sinus tenderness to palpation. Eyes: No icterus or conjunctivitis. Mouth and Throat: No oral thrush or mucositis. NECK: Supple. No cervical or supraclavicular lymphadenopathy. LUNGS: Clear to auscultation and percussion bilaterally. HEART: Regular rate and rhythm. No gallops, murmurs, clicks, or rubs. ABDOMEN: Soft and lax. No tenderness. No hepatosplenomegaly. No masses. EXTREMITIES: No cyanosis, clubbing, or edema. LYMPHATICS: No peripheral lymphadenopathy. NEUROLOGIC: Conscious, alert, and oriented times three. No focal motor or sensory deficits. PSYCHIATRIC: Mood and affect appear normal. SKIN: No skin rash, bruise, or purpuric eruption. DIAGNOSTIC DATA CBC showed white count 6.6, hemoglobin 16.2, hematocrit 49.8, platelets 252,000. Iron studies show serum iron 94, TIBC 266, iron saturation 35.3%, and ferritin 143, which is up from 12. ASSESSMENT 1. Chronic, recurrent iron deficiency anemia, without obvious cause of her anemia. Patient was maintained on ferrous sulfate 325 mg daily, but the patient could not tolerate iron pills. She had a gastrointestinal workup by Dr. Carr in January 2017, which was negative for a bleeding source. She received Injectafer in the past with improvement of her ferritin, and again, she received Injectafer for low ferritin at 12 four months ago. Her current ferritin is 143. I am planning to see her again in three months with CBC and iron studies, and I will consider Injectafer whenever her ferritin is low. I explained that to the patient, and she is agreeable with the plan of management. 2. History of asthma. 3. Gastroesophageal reflux disease, on Nexium. 4. Anxiety, on Celexa. PLAN 1. Continue followup. 2. Patient to return in three months with CBC and iron studies with ferritin. 3. Consider Injectafer if there is iron deficiency. 4. Patient to contact us for any new concern or complaints. MARIE
== END 2018-11-15 ==
LOC: ONC 11:57
PROVIDERS: ATTEND Internal Medicine Hematology
DX: D50.9 Iron deficiency anemia, unspecified (principal); K21.9 Gastro-esophageal reflux disease without esophagitis; F41.9 Anxiety disorder, unspecified; Z79.899 Other long term (current) drug therapy; G62.9 Polyneuropathy, unspecified
CPT/HCPCS: 36415; 82728; 83540; 83550; 85025; 99212